=== PATIENT | female | born 1940 | race Caucasian/White ===

== ENCOUNTER 2016-10-26 08:07 | Day surgery (SDC) | payer MEDICARE, OTHER ==
[2016-10-26] MEDS: Polymyxin B/Trimethoprim 10 ML Bottle EYELF SCH ×4 (08:27→10:11)
[2016-10-26] MEDS: Brimonidine 0.2% Ophth Soln 5 ML Bottle EYELF SCH ×4 (08:32→10:11)
[2016-10-26] MEDS: Phenylephrine 2.5% Ophth Soln 2 ML Bot EYELF SCH ×6 (08:38→09:50)
--- NOTE | 2016-10-26 09:20 | PCM.PREANE ---
Preanesthetic Assessment - Anesthesia/Transfusion/Family Hx Anesthesia History: Prior Anesthesia Without Reaction Family History of Anesthesia Reaction: No Transfusion History: Prior Transfusion Without Reaction - Review of Systems General: No Symptoms Pulmonary: No Symptoms Cardiovascular: No Symptoms Gastrointestinal: No symptoms Neurological: No Symptoms Other: Reports: None - Physical Assessment NPO Status Date: 10/25/16 NPO Status Time: 20:00 Pulse: 55 O2 Sat by Pulse Oximetry: 99 Respiratory Rate: 16 Blood Pressure: 119/68 Temperature: 36.1 C Vital Signs: Last Vital Signs Temp 36.1 C 10/26/16 08:15 Pulse 55 L 10/26/16 08:15 Resp 16 10/26/16 08:15 BP 119/68 10/26/16 08:15 Pulse Ox 99 10/26/16 08:15 Height: 1.68 m Weight: 81.647 kg ASA Class: 2 Mental Status: Alert & Oriented x3 Airway Class: Mallampati = 1 Dentition: Reports: Normal Dentition Thyro-Mental Finger Breadths: 3 Mouth Opening Finger Breadths: 3 ROM/Head Extension: Full Lungs: Clear to auscultation, Normal respiratory effort Cardiovascular: Regular Rate, Regular Rhythm - Allergies Allergies/Adverse Reactions: Allergies Allergy/AdvReac Type Severity Reaction Status Date / Time Penicillins Allergy Cannot Verified 10/25/16 14:17 Remember - Blood Blood Available: No Product(s) Available: None - Anesthesia Plan Pre-Op Medication Ordered: Beta Elvia Beta Eliva: Atenolol Med Last Dose Date: 10/26/16 Med Last Dose Time: 07:00 - Acknowledgements Anesthesia Type Planned: MAC Pt an Appropriate Candidate for the Planned Anesthesia: Yes Alternatives and Risks of Anesthesia Discussed w Pt/Guardian: Yes Pt/Guardian Understands and Agrees with Anesthesia Plan: Yes PreAnesthesia Questionnaire - SUBSTANCE USE Smoking Status *Q: Never Smoker Tobacco Use Within Last Twelve Months: No Second Hand Smoke Exposure: No Days Per Week of Alcohol Use: 0 Number of Drinks Per Day: 1 Total Drinks Per Week: 0 Recreational Drug Use History: No - HOME MEDS Home Medications: Home Meds Escitalopram [Lexapro] 20 mg PO DAILY 10/25/16 [History] Hydrocodone/Acetaminophen [Hydrocodon-Acetaminophn 10-325] 1 tab PO Q6H PRN [History] Labetalol [Normodyne] 100 mg PO BID 10/25/16 [History] Latanoprost [Xalatan] 1 drop EYEBOTH BEDTIME 10/25/16 [History] Lisinopril 40 mg PO DAILY 10/25/16 [History] Meloxicam 15 mg PO DAILY 10/25/16 [History] Triamterene/Hydrochlorothiazid [Triamterene-HCTZ 75-50 MG] 1 tab PO DAILY [History] Zolpidem [Ambien] 10 mg PO BEDTIME 10/25/16 [History] amLODIPine [Norvasc] 10 mg PO DAILY 10/25/16 [History] - CURRENT (IN HOUSE) MEDS Current Meds: Current Medications Brimonidine Tartrate (Alphagan 0.2% Ophth Soln) 0 ml EYELF ASDIRECTED FELIPA Stop: 10/26/16 16:00 Last Admin: 10/26/16 08:32 Dose: 1 drop Cefuroxime Sodium (Zinacef) 0 mg EYELF ASDIRECTED FELIPA Stop: 10/26/16 18:00 Lidocaine HCl (Xylocaine-Mpf 1%) 10 ml INJECT ASDIRECTED FELIPA Stop: 10/26/16 18:00 Phenylephrine HCl (Catrachito-Synephrine 2.5% Ophth Soln) 0 ml EYELF ASDIRECTED FELIPA Stop: 10/26/16 16:00 Last Admin: 10/26/16 09:02 Dose: 1 drop Pilocarpine HCl (Pilocar 4% Ophth Soln) 0 ml EYELF ASDIRECTED FELIPA Stop: 10/26/16 16:00 Polymyxin/Trimethoprim Sulfate (Polytrim Ophth Soln) 0 ml EYELF ASDIRECTED FELIPA Stop: 10/26/16 16:00 Last Admin: 10/26/16 09:11 Dose: 1 drop Tetracaine HCl (Tetracaine 0.5% Steri-Unit Dominga) 0 ml EYELF ASDIRECTED FELIPA Stop: 10/26/16 16:00 Tropicamide (Mydriacyl 1% Ophth Soln) 0 ml EYELF ASDIRECTED FELIPA Stop: 10/26/16 16:00 Last Admin: 10/26/16 09:06 Dose: 1 drop
[2016-10-26] MEDS: Lidocaine 1% PF 2 ML SDV INJECT SCH ×2 (09:21→10:02)
[2016-10-26] MEDS: Cefuroxime 10 MG/ML SYRINGE EYELF SCH ×2 (09:22→10:10)
[2016-10-26] MEDS: Tetracaine HCl/PF 0.5% 4 ML Bottle EYELF SCH ×3 (09:22→10:03)
[2016-10-26] MEDS: Pilocarpine 4% Ophth Soln 15 ML Bot EYELF SCH ×2 (09:24→10:11)
--- NOTE | 2016-10-26 10:13 | PCM48HPAN ---
Post Anesthesia Note - EVALUATION WITHIN 48HRS OF ANESTHETIC Vital Signs in Normal Range: Yes Patient Participated in Evaluation: Yes Respiratory Function Stable: Yes Airway Patent: Yes Cardiovascular Function Stable: Yes Hydration Status Stable: Yes Pain Control Satisfactory: Yes Nausea and Vomiting Control Satisfactory: Yes Mental Status Recovered: Yes
[2016-10-26 10:28] VITALS: BP 126/59
== END 2016-10-26 10:25 | disposition home or self-care (01) ==
LOC: JD.SDS 08:07
PROVIDERS: ATTEND Ophthalmology
DX: H53.8 Other visual disturbances (principal); I10 Essential (primary) hypertension; Z88.0 Allergy status to penicillin; Z90.49 Acquired absence of other specified parts of digestive tract; Z90.710 Acquired absence of both cervix and uterus; Z98.890 Other specified postprocedural states; Z96.659 Presence of unspecified artificial knee joint
CPT/HCPCS: 66984; C1780; J0697; A9270-GY

== ENCOUNTER 2016-12-30 07:27 | Day surgery (SDC) | payer MEDICARE, OTHER ==
[~2016-12-30 07:27] MED LIST: Cefuroxime 10 MG/ML SYRINGE EYERT SCH; Lidocaine 1% PF 2 ML SDV INJECT SCH; Pilocarpine 4% Ophth Soln 15 ML Bot EYERT SCH
[2016-12-30] MEDS: Polymyxin B/Trimethoprim 10 ML Bottle EYERT SCH ×3 (07:35→09:24)
[2016-12-30] MEDS: Brimonidine 0.2% Ophth Soln 5 ML Bottle EYERT SCH ×3 (07:42→09:24)
[2016-12-30] MEDS: Phenylephrine 2.5% Ophth Soln 2 ML Bot EYERT SCH ×5 (07:48→09:08)
--- NOTE | 2016-12-30 08:30 | PCM.PREANE ---
Preanesthetic Assessment - Anesthesia/Transfusion/Family Hx Anesthesia History: Prior Anesthesia Without Reaction Family History of Anesthesia Reaction: No Transfusion History: Prior Transfusion Without Reaction - Review of Systems General: No Symptoms Pulmonary: No Symptoms Cardiovascular: No Symptoms Gastrointestinal: No Symptoms Neurological: No Symptoms Other: Reports: None - Physical Assessment NPO Status Date: 12/29/16 NPO Status Time: 21:00 Pulse: 60 O2 Sat by Pulse Oximetry: 97 Respiratory Rate: 16 Blood Pressure: 125/67 Temperature: 36.7 C Vital Signs: Last Vital Signs Temp 36.7 C 12/30/16 07:40 Pulse Resp 16 12/30/16 07:40 BP 125/67 12/30/16 07:40 Pulse Ox 97 12/30/16 07:40 Height: 1.65 m Weight: 72.575 kg ASA Class: 2 Mental Status: Alert & Oriented x3 Airway Class: Mallampati = 1 Dentition: Reports: Normal Dentition Thyro-Mental Finger Breadths: 3 Mouth Opening Finger Breadths: 3 ROM/Head Extension: Full Lungs: Clear to Auscultation, Normal Respiratory Effort Cardiovascular: Regular Rate, Regular Rhythm - Allergies Allergies/Adverse Reactions: Allergies Allergy/AdvReac Type Severity Reaction Status Date / Time Penicillins Allergy Cannot Verified 10/25/16 14:17 Remember - Blood Blood Available: No Product(s) Available: None - Anesthesia Plan Pre-Op Medication Ordered: None - Acknowledgements Anesthesia Type Planned: MAC Pt an Appropriate Candidate for the Planned Anesthesia: Yes Alternatives and Risks of Anesthesia Discussed w Pt/Guardian: Yes Pt/Guardian Understands and Agrees with Anesthesia Plan: Yes PreAnesthesia Questionnaire - SUBSTANCE USE Smoking Status *Q: Never Smoker Tobacco Use Within Last Twelve Months: No Second Hand Smoke Exposure: No Days Per Week of Alcohol Use: 0 Number of Drinks Per Day: 1 Total Drinks Per Week: 0 Recreational Drug Use History: No - HOME MEDS Home Medications: Home Meds Escitalopram [Lexapro] 20 mg PO DAILY 10/25/16 [History] Hydrocodone/Acetaminophen [Hydrocodon-Acetaminophn 10-325] 1 tab PO Q6H PRN [History] Labetalol [Normodyne] 100 mg PO BID 10/25/16 [History] Latanoprost [Xalatan] 1 drop EYEBOTH BEDTIME 10/25/16 [History] Lisinopril 40 mg PO DAILY 10/25/16 [History] Meloxicam 15 mg PO DAILY 10/25/16 [History] Triamterene/Hydrochlorothiazid [Triamterene-HCTZ 75-50 MG] 1 tab PO DAILY [History] Zolpidem [Ambien] 10 mg PO BEDTIME 10/25/16 [History] amLODIPine [Norvasc] 10 mg PO DAILY 10/25/16 [History] - CURRENT (IN HOUSE) MEDS Current Meds: Current Medications Brimonidine Tartrate (Alphagan 0.2% Ophth Soln) 0 ml EYERT ASDIRECTED FELIPA Stop: 12/30/16 18:00 Last Admin: 12/30/16 07:42 Dose: 1 drop Cefuroxime Sodium (Zinacef) 0 mg EYERT ASDIRECTED FELIPA Stop: 12/30/16 18:00 Lidocaine HCl (Xylocaine-Mpf 1%) 10 ml INJECT ASDIRECTED FELIPA Stop: 12/30/16 18:00 Phenylephrine HCl (Catrachito-Synephrine 2.5% Ophth Soln) 0 ml EYERT ASDIRECTED FELIPA Stop: 12/30/16 18:00 Last Admin: 12/30/16 08:06 Dose: 1 drop Pilocarpine HCl (Pilocar 4% Ophth Soln) 0 ml EYERT ASDIRECTED FELIPA Stop: 12/30/16 18:00 Polymyxin/Trimethoprim Sulfate (Polytrim Ophth Soln) 0 ml EYERT ASDIRECTED FELIPA Stop: 12/30/16 18:00 Last Admin: 12/30/16 08:17 Dose: 1 drop Tetracaine HCl (Tetracaine 0.5% Steri-Unit Dominga) 0 ml EYERT ASDIRECTED FELIPA Stop: 12/30/16 18:00 Tropicamide (Mydriacyl 1% Ophth Soln) 0 ml EYERT ASDIRECTED FELIPA Stop: 12/30/16 18:00 Last Admin: 12/30/16 08:12 Dose: 1 drop
[2016-12-30] MEDS: Tetracaine HCl/PF 0.5% 4 ML Bottle EYERT SCH ×2 (08:49→09:15)
[2016-12-30 09:38] VITALS: BP 114/66
== END 2016-12-30 09:36 | disposition home or self-care (01) ==
LOC: JD.SDS 07:27
PROVIDERS: ATTEND Ophthalmology
PROC: 08RJ3JZ Replacement of Right Lens with Synthetic Substitute, Percutaneous Approach (ICD-10-PCS; principal; 2016-12-30)
DX: H25.811 Combined forms of age-related cataract, right eye (principal); H02.834 Dermatochalasis of left upper eyelid; H02.831 Dermatochalasis of right upper eyelid; H40.1132 Primary open-angle glaucoma, bilateral, moderate stage; H35.3131 Nonexudative age-related macular degeneration, bilateral, early dry stage; Z96.1 Presence of intraocular lens; I10 Essential (primary) hypertension; M19.90 Unspecified osteoarthritis, unspecified site; Z90.49 Acquired absence of other specified parts of digestive tract; Z90.710 Acquired absence of both cervix and uterus; Z96.659 Presence of unspecified artificial knee joint; Z98.42 Cataract extraction status, left eye; Z98.890 Other specified postprocedural states; Z83.518 Family history of other specified eye disorder; Z83.3 Family history of diabetes mellitus; Z79.899 Other long term (current) drug therapy
CPT/HCPCS: 66984; A9270; C1780; J0697

== ENCOUNTER 2017-07-27 05:53 | Emergency (ER) | payer MEDICARE, OTHER ==
[2017-07-27 05:58] VITALS: BP 147/74
--- NOTE | 2017-07-27 06:15 | EDM.PDOC ---
ED HPI GENERAL MEDICAL PROBLEM - General Chief Complaint: Chest Pain Stated Complaint: chest pain Time Seen by Provider: 07/27/17 06:05 Source of Information: Reports: Patient History Limitations: Reports: No Limitations - History of Present Illness INITIAL COMMENTS - FREE TEXT/NARRATIVE: 76-year-old female presents to the ED with intermittent central chest discomfort which she has a hard time putting into words. She feels like an explosion is going to happen. She has deep insight into the feeling that it's underlying anxiety and stress causing her chest pains. She is having marked difficulty sleeping due to chronic low back pain with spinal stenosis radiating into both but talks and down her legs. Associated restless leg syndrome. She reports numerous family stressors that are not going well. She has no history of gastroesophageal reflux disease. She sometimes can get relief by taking Cleopatra- Allen as it makes her burp or belch. He doesn't have any trouble swallowing. She has no known heart disease. She is a never smoker. No recent history of being laid up although she reports she has not all that active because of her back pain. She had been receiving injections into the facet joints every 3 months and this seemed to help control her pain quite nicely but is no longer available to her. She denies any change in bowel or bladder function. Gallbladder is gone. He never radiates to her back neck or arms. She overall feels she needs different medication help control anxiety levels. At the time she seen in the ED she reports no chest pain. ECG done by triage nurse shows sinus rhythm at 70/m. There is a Q-wave in V1 and V2 compatible with an old anteroseptal myocardial infarction which the patient has no knowledge of. She does exhibit a left atrial hypertrophy pattern and as well as a left ventricular hypertrophy pattern. QT intervals mildly prolonged. No signs of ischemia are evident although the baseline does wander a fair amount. Onset: Gradual, Unknown/Unsure (Chest pains been coming and going for several days but perhaps a little worse or more intense or more frequent last 2 days.) Onset Date: 07/25/17 Duration: Day(s):, Getting Worse, Intermittent, Waxing/Waning Location: Reports: Chest (Mostly central retrosternal chest.) Quality: Reports: Ache, Pressure. Denies: Sharp, Stabbing Severity: Moderate Improves with: Reports: None Worsens with: Reports: None Context: Denies: Activity, Exercise, Lifting, Sick Contact, Trauma, Other Associated Symptoms: Reports: Chest Pain, Diaphoresis, Loss of Appetite, Malaise. 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: Other (see below) (None other than her prescribed medications.) Left Chest Pain Score (Numeric/FACES): 8 - Related Data Allergies Allergy/AdvReac Type Severity Reaction Status Date / Time Penicillins Allergy Cannot Verified 10/25/16 14:17 Remember [id number]-[id number] Reductase Allergy Cannot Verified 07/27/17 05:56 Inhibitor Remember Home Meds: Home Meds Escitalopram [Lexapro] 40 mg PO DAILY 10/25/16 [History] Hydrocodone/Acetaminophen [Hydrocodon-Acetaminophn 10-325] 1 tab PO Q6H PRN [History] Labetalol [Normodyne] 100 mg PO BID 10/25/16 [History] Latanoprost [Xalatan] 1 drop EYEBOTH BEDTIME 10/25/16 [History] Lisinopril 40 mg PO DAILY 10/25/16 [History] Meloxicam 15 mg PO DAILY 10/25/16 [History] Triamterene/Hydrochlorothiazid [Triamterene-HCTZ 75-50 MG] 1 tab PO DAILY [History] amLODIPine [Norvasc] 10 mg PO DAILY 10/25/16 [History] Bacitracin/Polymyxin B Sulfate [Polysporin Ointment] 15 gm TP DAILY #1 oint...g. 07/27/17 [Rx] ClonazePAM [KlonoPIN] 1 mg PO ASDIRECTED #60 tab 07/27/17 [Rx] Past Medical History HEENT History: Reports: Cataract, Impaired Vision Other HEENT History: Wears glasses Cardiovascular History: Reports: Hypertension Musculoskeletal History: Reports: Back Pain, Chronic Other Musculoskeletal History: Spinal stenosis, Restles leg syndrome Psychiatric History: Reports: Anxiety - Past Surgical History HEENT Surgical History: Reports: Cataract Surgery GI Surgical History: Reports: Appendectomy, Cholecystectomy Female Surgical History: Reports: Hysterectomy, Salpingo-Oophorectomy Musculoskeletal Surgical History: Reports: Knee Replacement Social & Family History - Tobacco Use Smoking Status *Q: Never Smoker Second Hand Smoke Exposure: No - Alcohol Use Days Per Week of Alcohol Use: 0 Number of Drinks Per Day: 1 Total Drinks Per Week: 0 - Recreational Drug Use Recreational Drug Use: No - Living Situation & Occupation Living situation: Reports: Occupation: Retired ED ROS GENERAL - Review of Systems Review Of Systems: See Below Constitutional: Reports: Fatigue, Decreased Appetite. Denies: Fever, Chills, Malaise, Weight Loss HEENT: Reports: Glasses, Nose Pain (Painful lesion left nosepainful lesion left inner naris for the last week no improvement on use of topical prescribed antibiotic which I suspect was likely Bactroban.). Denies: Hearing Loss, Vertigo Respiratory: Denies: Shortness of Breath, Wheezing, Pleuritic Chest Pain, Cough , Sputum, Hemoptysis Cardiovascular: Reports: Chest Pain, Blood Pressure Problem (Intermittent central chest pressure discomfort.). Denies: Claudication ( Chronic hypertension usually well controlled with medications), Dyspnea on Exertion, Edema, Lightheadedness, Orthopnea, Palpitations Endocrine: Reports: Fatigue GI/Abdominal: Denies: Abdominal Pain, Anorexia, Black Stool, Bloody Stool, Diarrhea, Decreased Appetite, Difficulty Swallowing, Distension, Flatus, Hematemesis, Hematochezia, Melena : Reports: Frequency Musculoskeletal: Reports: Back Pain (Chronic low back pain due to spinal stenosis with pain radiating down both legs. This is strongly disrupted her sleep patterns. She has associated restless leg syndrome which is getting worse as well.) Skin: Reports: No Symptoms Neurological: Reports: Difficulty Walking (Restless leg syndrome due to spinal stenosis.), Other Psychiatric: Reports: Anxiety Hematologic/Lymphatic: Reports: No Symptoms Immunologic: Reports: No Symptoms ED EXAM, GENERAL - Physical Exam Exam: See Below Exam Limited By: No Limitations General Appearance: Alert, WD/WN, Anxious (Mildly anxious.) Eye Exam: Bilateral Eye: Normal Inspection Throat/Mouth: Normal Inspection, Normal Lips, Normal Teeth, Normal Gums, Normal Oropharynx Head: Atraumatic, Normocephalic Neck: Normal Inspection, Supple, Non-Tender, Full Range of Motion. No: Carotid Bruit, Lymphadenopathy (L), Lymphadenopathy (R) Respiratory/Chest: No Respiratory Distress, Lungs Clear, Normal Breath Sounds, No Accessory Muscle Use, Chest Non-Tender Cardiovascular: Normal Peripheral Pulses, Regular Rate, Rhythm, No Edema, No Gallop, No Murmur, No Rub Peripheral Pulses: 2+: Posterior Tibial (L), Posterior Tibial (R), Dorsalis Pedis (L), Dorsalis Pedis (R) GI/Abdominal: Normal Bowel Sounds, Soft, Non-Tender, No Organomegaly, No Distention, No Abnormal Bruit, No Mass, Pelvis Stable Back Exam: Normal Inspection, Full Range of Motion. No: CVA Tenderness (L), CVA Tenderness (R) Extremities: Normal Inspection, Other (Has had bilateral total knee replacements left 10 years ago right 5 years ago. She still has marked increased warmth to palpation over the left knee. No edema in either lower extremity. Both calves were nontender and easily pliable.) Neurological: Alert, Oriented, CN II-XII Intact, Normal Cognition Psychiatric: Normal Affect, Anxious Skin Exam: Warm, Dry, Intact, Normal Color, No Rash EKG INTERPRETATION EKG Date: 07/27/17 Time: 06:00 Rhythm: NSR Rate (Beats/Min): 70 [place]: Normal P-Wave: Enlarged (Likely left atrial hypertrophy pattern.) QRS: Other (Left ventricular hypertrophy pattern Q waves V1 and V2 compatible with possible old anteroseptal myocardial infarction. She has no recollection of any heart attack.) ST-T: Normal QT: Prolonged (QT interval is mildly prolonged.) EKG Interpretation Comments: Abnormal ECG. No ischemia evident. Course - Vital Signs Last Recorded V/S: Last Vital Signs Temp 36.8 C 07/27/17 05:56 Pulse 72 07/27/17 05:56 Resp 16 07/27/17 05:56 BP 147/74 H 07/27/17 05:56 Pulse Ox 95 07/27/17 05:56 - Orders/Labs/Meds Orders: Active Orders 24 hr Category Date Time Status EKG Documentation Completion [RC] STAT Care 07/27/17 06:07 Active EKG Documentation Completion [RC] STAT Care 07/27/17 06:15 Active Peripheral IV Care [RC] . DIRECTED Care 07/27/17 06:16 Active Chest 1V Frontal [CR] Stat Exams 07/27/17 06:15 Taken PRO B-TYPE NATRIUR PEPT,BNPPRO [CHEM] Stat Lab 07/27/17 06:28 Received Sodium Chloride 0.9% [Saline Flush] Med 07/27/17 06:16 Active 10 ml FLUSH ASDIRECTED PRN Peripheral IV Insertion Adult [OM.PC] Stat Oth 07/27/17 06:16 Ordered Medication Orders Sodium Chloride (Saline Flush) 10 ml FLUSH ASDIRECTED PRN PRN Reason: Keep Vein Open Last Admin: 07/27/17 06:20 Dose: 10 ml Labs: Laboratory Tests 07/27/17 07/27/17 07/27/17 Range/Units 06:28 06:28 06:28 WBC 6.63 (3.98-10.04) K/mm3 RBC 4.06 (3.98-5.22) M/mm3 Hgb 11.7 (11.2-15.7) gm/L Hct 34.9 (34.1-44.9) % MCV 86.0 (79.4-94.8) fl MCH 28.8 (25.6-32.2) pg MCHC 33.5 (32.2-35.5) g/dl RDW Std Deviation 41.9 (36.4-46.3) fL Plt Count 282 (182-369) K/mm3 MPV 9.4 (9.4-12.3) fl Neutrophils % (Manual) 67 H (40-60) % Band Neutrophils % 0 (0-10) % Lymphocytes % (Manual) 24 (20-40) % Atypical Lymphs % 0 % Monocytes % (Manual) 5 (2-10) % Eosinophils % (Manual) 4 (0.7-5.8) % Basophils % (Manual) 0 L (0.1-1.2) Platelet Estimate Adequate RBC Morph Comment Normal D-Dimer, Quantitative 0.57 H (0.19-0.50) mg/L Sodium 135 L (136-145) mEq/L Potassium 3.7 (3.5-5.1) mEq/L Chloride 97 L (98-107) mEq/L Carbon Dioxide 29 (21-32) mEq/L Anion Gap 12.7 (5-15) BUN 12 (7-18) mg/dL Creatinine 1.0 (0.55-1.02) mg/dL Est Cr Clr Drug Dosing 43.74 mL/min Estimated GFR (MDRD) 54 (>60) mL/min BUN/Creatinine Ratio 12.0 L (14-18) Glucose 117 H (83-115) mg/dL Calcium 8.3 L (8.5-10.1) mg/dL Magnesium 1.4 L (1.8-2.4) mg/dl Total Bilirubin 0.4 (0.2-1.0) mg/dL AST 23 (15-37) U/L ALT 23 (14-59) U/L Alkaline Phosphatase 65 (46-116) U/L CK-MB (CK-2) 0.6 (0-3.6) ng/ml Troponin I < 0.017 (0.00-0.056) ng/mL C-Reactive Protein < 0.2 (<1.0) mg/dL Total Protein 6.3 L (6.4-8.2) g/dl Albumin 3.4 (3.4-5.0) g/dl Globulin 2.9 gm/dL Albumin/Globulin Ratio 1.2 (1-2) Meds: Medications Generic Name Dose Route Start Last Admin Trade Name Freq PRN Reason Stop Dose Admin Sodium Chloride 10 ml 07/27/17 06:16 07/27/17 06:20 Saline Flush FLUSH 10 ml ASDIRECTED PRN Administration Keep Vein Open - Radiology Interpretation Free Text/Narrative:: 76-year-old female presents to the ED with central chest discomfort that has been intermittent for the last several days but worse the last couple of days. More frequent and more intense. She feels at times as she's bursting from inside. She has strong insight into the fact that she is experiencing a good deal of anxiety. Her sleep pattern is extremely disrupted due to chronic low back pain from spinal stenosis and restless leg syndrome. She like if she gets 2 hours of sleep in a row most nights. She believes if her anxiety was under better control she would not be having the chest pain. Examination reveals lungs to be clear with sats of 100% on room air. ECG suggests possible Q waves in V1 and V2 suggesting an old anteroseptal myocardial infarction however the patient has no history of this. She is a never smoker. With the time my examination she had no chest pain and therefore was not prescribed any immediate medications. Labs will be done as well as a single chest x-ray. We will then reevaluate her medications. - Re-Assessments/Exams Free Text/Narrative Re-Assessment/Exam: 07/27/17 07:03 chest x-ray reveals mildly hyperinflated lung de la cruz bilaterally. Lung de la cruz are otherwise clear. Cardiac silhouette is within normal limits. Slight tortuosity of the thoracic your aorta is appreciated. 07/27/17 07:40 Labs are starting to come back. Total white count is 6.63 with 67 % neutrophils and no bands. Hemoglobin is 11.7 slightly low hematocrit is 34.9. MCV is normal at 86. Platelet count 282,000. D-dimer 0.57 upper limits of normal. Normal for her age. Chemistry is pending. Sodium is 135 with a potassium of 3.7. Chloride is 97 with a bicarbonate 29. Anion gap is 12.7 with a BUN of 12. Creatinine is normal at 1.0. Glucose is 117. Calcium 8.3. Magnesium slightly low at 1.4. Liver function is normal. Cardiac markers show a CK-MB fraction 0.6 with a troponin I of less than 0.017. C-reactive protein is less than 0.2. Therefore there is no supporting evidence of her chest pain cardiac related. She recognizes that it's mostly the stress in her life that is causing the problem with markedly disrupted sleep pattern. Her Ambien and is no longer very helpful as she seems to become very tolerant to it. Plan I'm going to place her on clonazepam-started with 1 mg at bedtime to aid sleep and 0.5 mg in the morning and if needed at 2 PM daily to control underlying anxiety. Advised follow-up with Amando Guillaume in one week's time. It also appears she could benefit from an increased dose and her Requip to 0.5 mg at bedtime which I will advise as well as her restless leg syndrome is much worse. It also has a mild sedative effect. Also recommend Polysporin ointment into her left nares with aid of a Q-tip every night at bedtime for the next week to heal up a superficial ulceration in her nose. Departure - Departure Time of Disposition: 07:49 Disposition: Home, Self-Care 01 Condition: Fair Clinical Impression: Non-cardiac chest pain, Generalized anxiety disorder, Chronic pain syndrome, Restless leg syndrome, Nasal mucositis (ulcerative) Prescriptions: Bacitracin/Polymyxin B Sulfate [Polysporin Ointment] 15 gm TP DAILY #1 oint...g. ClonazePAM [KlonoPIN] 1 mg PO ASDIRECTED #60 tab Referrals: Juliette Guillaume, [employer]INE OPERATOR [Primary Care Provider] - Forms: ED Department Discharge Additional Instructions: Evaluation the emergency room this morning in regards to intermittent central chest pains off and on for the last several days but much worse the last 2 days. She did shortness of breath. You have good insight into the chest pain being related to underlying stress and anxiety and severely disrupted sleep pattern due to chronic pain from lower back spinal stenosis. Associated restless leg syndrome. All the lab test ECG and chest x-ray returned within normal limits. There is no evidence that current chest pains or heart related. Also no blood clots were identified within the lungs. My suggestion is to discontinue Ambien for now which you've been utilizing to help sleep and it is no longer working well. Replace it with clonazepam 1 mg at bedtime. Use 0.5 mg or half a tablet in the morning and may repeat his second half tablet around 2 or 3:00 in the afternoon if you need to for anxiety relief. I would suggest increasing her Requip to 0.5 mg at bedtime to help with restless leg syndrome. The other medication is Polysporin ointment to be applied by Q-tip up into her left naris at bedtime for the next 7-10 days to heal superficial ulceration. Suggest follow-up with your personal care provider in 7 days time. - My Orders Last 24 Hours: My Active Orders 07/27/17 06:07 EKG Documentation Completion [RC] STAT 07/27/17 06:15 EKG Documentation Completion [RC] STAT Chest 1V Frontal [CR] Stat 07/27/17 06:16 Peripheral IV Care [RC] . DIRECTED Sodium Chloride 0.9% [Saline Flush] 10 ml FLUSH ASDIRECTED PRN Peripheral IV Insertion Adult [OM.PC] Stat 07/27/17 06:28 PRO B-TYPE NATRIUR PEPT,BNPPRO [CHEM] Stat - Assessment/Plan Last 24 Hours: My Active Orders 07/27/17 06:07 EKG Documentation Completion [RC] STAT 07/27/17 06:15 EKG Documentation Completion [RC] STAT Chest 1V Frontal [CR] Stat 07/27/17 06:16 Peripheral IV Care [RC] . DIRECTED Sodium Chloride 0.9% [Saline Flush] 10 ml FLUSH ASDIRECTED PRN Peripheral IV Insertion Adult [OM.PC] Stat 07/27/17 06:28 PRO B-TYPE NATRIUR PEPT,BNPPRO [CHEM] Stat
[2017-07-27] MEDS ORDERED: Sodium Chloride 0.9% 10 ML Syringe FLUSH PRN (06:16)
--- NOTE | 2017-07-27 08:43 | CR ---
Chest: Portable view of the chest was obtained. Comparison: Prior chest x-ray of 07/14/14. Heart size and mediastinum are within normal limits for portable technique. Lungs are clear. Bony structures are grossly intact. Impression: 1. Nothing acute is seen on portable chest x-ray. Diagnostic code #1
== END 2017-07-27 08:20 | disposition home or self-care (01) ==
LOC: JD.ED 05:53
DX: R07.89 Other chest pain (principal); F41.1 Generalized anxiety disorder; G89.29 Other chronic pain; G25.81 Restless legs syndrome; J34.81 Nasal mucositis (ulcerative); I10 Essential (primary) hypertension; Z88.0 Allergy status to penicillin; Z88.8 Allergy status to other drugs, medicaments and biological substances; Z79.899 Other long term (current) drug therapy
CPT/HCPCS: 36415; 71045; 80053; 82553; 83735; 83880; 84484; 85025; 85379; 86140; 93005; 99285; J7050; 99284

== ENCOUNTER 2018-04-22 13:06 | Emergency (ER) | payer MEDICARE, OTHER ==
[2018-04-22 13:15] VITALS: BP 134/100
[2018-04-22] MEDS ORDERED: Sodium Chloride 0.9% 10 ML Syringe FLUSH PRN (13:24)
[2018-04-22] MEDS ORDERED: Sodium Chloride 0.9% 1,000 ML IV ONE (13:26)
--- NOTE | 2018-04-22 13:57 | EDM.PDOC ---
ED HPI GENERAL MEDICAL PROBLEM - General Chief Complaint: General Stated Complaint: [facility] Time Seen by Provider: 04/22/18 13:10 Source of Information: Reports: Patient, Significant Other History Limitations: Reports: No Limitations - History of Present Illness INITIAL COMMENTS - FREE TEXT/NARRATIVE: 77-year-old female arrives via [facility]. Reportedly the patient was found on the floor in the bedroom. She denies any falls. Per EMS she was unsteady and had generalized weakness upon their arrival. The patient is denying any headaches, neck pain, syncope, chest pain, shortness of breath, abdominal pain, diarrhea, recent fevers or chills or cough symptoms. Patient's is present in the ER and states that she was in the bedroom. He did not hear her fall and found her on the floor. - Related Data Allergies Allergy/AdvReac Type Severity Reaction Status Date / Time Penicillins Allergy Cannot Verified 04/22/18 13:11 Remember Donkdrw-Znb-Cer Reductase Allergy Cannot Verified 04/22/18 13:11 Inhibitor Remember Home Meds: Home Meds Labetalol [Normodyne] 100 mg PO BID 10/25/16 [History] Latanoprost [Xalatan] 1 drop EYEBOTH BEDTIME 10/25/16 [History] Lisinopril 40 mg PO DAILY 10/25/16 [History] Triamterene/Hydrochlorothiazid [Triamterene-HCTZ 75-50 MG] 1 tab PO DAILY [History] amLODIPine [Norvasc] 10 mg PO DAILY 10/25/16 [History] buPROPion HCl [Wellbutrin Xl] 150 mg PO DAILY 01/21/18 [History] rOPINIRole HCl [Requip] 1 mg PO BEDTIME 01/21/18 [History] traZODone HCl [Trazodone HCl] 50 - 100 mg PO Q4HR PRN 01/21/18 [History] Escitalopram Oxalate [Lexapro] 20 mg PO DAILY 04/22/18 [History] Meloxicam [Mobic] 15 mg PO DAILY 04/22/18 [History] Nabumetone [Relafen] 750 mg PO BID 04/22/18 [History] Sertraline HCl 150 mg PO BEDTIME 04/22/18 [History] Zolpidem [Ambien] 10 mg PO BEDTIME 04/22/18 [History] Past Medical History HEENT History: Reports: Cataract, Impaired Vision Other HEENT History: Wears glasses Cardiovascular History: Reports: Hypertension Musculoskeletal History: Reports: Back Pain, Chronic Other Musculoskeletal History: Spinal stenosis, Restles leg syndrome Psychiatric History: Reports: Anxiety - Past Surgical History HEENT Surgical History: Reports: Cataract Surgery GI Surgical History: Reports: Appendectomy, Cholecystectomy Female Surgical History: Reports: Hysterectomy, Salpingo-Oophorectomy Musculoskeletal Surgical History: Reports: Knee Replacement Social & Family History - Tobacco Use Smoking Status *Q: Unknown Ever Smoked - Caffeine Use Caffeine Use: Reports: Coffee - Recreational Drug Use Recreational Drug Use: No - Living Situation & Occupation Living situation: Reports: Occupation: Retired ED ROS GENERAL - Review of Systems Review Of Systems: See Below Constitutional: Denies: Fever, Chills Respiratory: Denies: Shortness of Breath Cardiovascular: Denies: Chest Pain GI/Abdominal: Denies: Abdominal Pain, Diarrhea, Nausea, Vomiting Musculoskeletal: Denies: Neck Pain Neurological: Denies: Headache, Numbness, Syncope, Tingling ED EXAM, GENERAL - Physical Exam Exam: See Below Exam Limited By: No Limitations General Appearance: Alert, WD/WN, No Apparent Distress Eye Exam: Bilateral Eye: EOMI, Normal Inspection, PERRL Ears: Normal External Exam, Normal Canal, Hearing Grossly Normal, Normal TMs Nose: Normal Inspection Throat/Mouth: Normal Inspection, Normal Lips, Normal Voice, No Airway Compromise Head: Atraumatic, Normocephalic Neck: Normal Inspection, Supple, Non-Tender, Full Range of Motion. No: Carotid Bruit Respiratory/Chest: No Respiratory Distress, Lungs Clear, Normal Breath Sounds Cardiovascular: Normal Peripheral Pulses, Regular Rate, Rhythm, No Murmur Peripheral Pulses: 2+: Radial (L), Radial (R) GI/Abdominal: Normal Bowel Sounds, Soft, Non-Tender Extremities: Normal Inspection Neurological: Alert, Oriented, CN II-XII Intact, Normal Cognition, Normal Gait, Other (slab lifting supervisor strength, dorsiflexion and plantar flexion are 5/5 bilaterally; no pronator drift, normal finger to nose testing, normal heel to hin testing) Psychiatric: Normal Affect, Normal Mood Skin Exam: Warm, Dry, Normal Color EKG INTERPRETATION EKG Date: 04/22/18 Time: 13:53 Rhythm: NSR Rate (Beats/Min): 66 Wheelwright: Normal P-Wave: Present QRS: Normal ST-T: Normal QT: Normal EKG Interpretation Comments: NSR at 66 bpm. No acute changes. Reviewed by myself and Dr. card. Course - Vital Signs Last Recorded V/S: Last Vital Signs Temp 97.4 F 04/22/18 13:12 Pulse 71 04/22/18 13:12 Resp 13 04/22/18 13:12 BP 134/100 H 04/22/18 13:12 Pulse Ox 100 04/22/18 13:12 - Orders/Labs/Meds Labs: Laboratory Tests 04/22/18 04/22/18 04/22/18 Range/Units 13:42 13:42 15:20 WBC 6.96 (3.98-10.04) K/mm3 RBC 3.98 (3.98-5.22) M/mm3 Hgb 11.6 (11.2-15.7) gm/L Hct 35.3 (34.1-44.9) % MCV 88.7 (79.4-94.8) fl MCH 29.1 (25.6-32.2) pg MCHC 32.9 (32.2-35.5) g/dl RDW Std Deviation 41.9 (36.4-46.3) fL Plt Count 263 (182-369) K/mm3 MPV 10.0 (9.4-12.3) fl Neut % (Auto) 72.2 H (34.0-71.1) % Lymph % (Auto) 16.2 L (19.3-51.7) % [place] % (Auto) 6.0 (4.7-12.5) % Eos % (Auto) 4.6 (0.7-5.8) Baso % (Auto) 0.7 (0.1-1.2) % Neut # (Auto) 5.02 (1.56-6.13) K/mm3 Lymph # (Auto) 1.13 L (1.18-3.74) K/mm3 [place] # (Auto) 0.42 H (0.24-0.36) K/mm3 Eos # (Auto) 0.32 (0.04-0.36) K/mm3 Baso # (Auto) 0.05 (0.01-0.08) K/mm3 Sodium 137 (136-145) mEq/L Potassium 3.9 (3.5-5.1) mEq/L Chloride 101 (98-107) mEq/L Carbon Dioxide 30 (21-32) mEq/L Anion Gap 9.9 (5-15) BUN 18 (7-18) mg/dL Creatinine 0.9 (0.55-1.02) mg/dL Est Cr Clr Drug Dosing 49.78 mL/min Estimated GFR (MDRD) > 60 (>60) mL/min BUN/Creatinine Ratio 20.0 H (14-18) Glucose 98 (83-115) mg/dL Calcium 8.7 (8.5-10.1) mg/dL Magnesium 1.5 L (1.8-2.4) mg/dl Total Bilirubin 0.5 (0.2-1.0) mg/dL AST 16 (15-37) U/L ALT 21 (14-59) U/L Alkaline Phosphatase 77 (46-116) U/L Troponin I < 0.017 (0.00-0.056) ng/mL Total Protein 6.5 (6.4-8.2) g/dl Albumin 3.5 (3.4-5.0) g/dl Globulin 3.0 gm/dL Albumin/Globulin Ratio 1.2 (1-2) Urine Color Yellow (Yellow) Urine Appearance Clear (Clear) Urine pH 7.0 (5.0-8.0) Ur Specific Pearson 1.020 (1.005-1.030) Urine Protein Trace H (Negative) Urine Glucose (UA) Negative (Negative) Urine Ketones Negative (Negative) Urine Occult Blood Negative (Negative) Urine Nitrite Negative (Negative) Urine Bilirubin Negative (Negative) Urine Urobilinogen 0.2 (0.2-1.0) Ur Leukocyte Esterase Trace H (Negative) Urine RBC 0-5 (0-5) /hpf Urine WBC 0-5 (0-5) /hpf Ur Epithelial Cells 0-5 (0-5) /hpf Urine Bacteria Rare (FEW) /hpf Urine Mucus Not seen (FEW) /hpf Meds: Medications Discontinued Medications Generic Name Dose Route Start Last Admin Trade Name Freq PRN Reason Stop Dose Admin Sodium Chloride 1,000 mls @ 125 mls/hr 04/22/18 13:26 04/22/18 13:37 Normal Saline IV 04/22/18 21:25 125 mls/hr ONETIME ONE Administration Magnesium Oxide 400 mg 04/22/18 15:54 04/22/18 16:25 Magnesium Oxide PO 04/22/18 15:55 400 mg ONETIME ONE Administration Sodium Chloride 10 ml 04/22/18 13:24 04/22/18 13:38 Saline Flush FLUSH 10 ml ASDIRECTED PRN Administration Keep Vein Open - Radiology Interpretation Free Text/Narrative:: CT of the head without contrast impression per vrad: There is parenchymal volume loss. White matter changes are demonstrated in the subcortical, centrum semiovale and periventicular white matter consistent with small vessel white matter angiopathic gliosis. 1 view chest xray shows no acute intrathoracic process. Formal radiology read pending. - Re-Assessments/Exams Free Text/Narrative Re-Assessment/Exam: 04/22/18 16:30 I reviewed the labs, ekg and imaging with the patient She is very anxious to go at this point. She was able to stand and walk with assistance. Sounds as if the weakness is more of a chronic issue. Se [facility] but at this point her and her express no desire for this . Recommend close followup in the clinic with PCP. Discharge instructions as documented. Departure - Departure Time of Disposition: 16:34 Disposition: Home, Self-Care 01 Condition: Fair Clinical Impression: Weakness, Hypomagnesemia - Discharge Information *PRESCRIPTION DRUG MONITORING PROGRAM REVIEWED*: No *COPY OF PRESCRIPTION DRUG MONITORING REPORT IN PATIENT AHSAN: No Instructions: Hypomagnesemia, Weakness Referrals: Sherrill Montenegro NP [Primary Care Provider] - Forms: ED Department Discharge Additional Instructions: Recommend [id number] magnesium supplementation. Follow-up with your primary care provider for recheck of your symptoms this week. Make sure you are drinking plenty of fluids. Please return to ER if your symptoms change or worsen.
[2018-04-22] MEDS ORDERED: Magnesium Oxide 400 MG Tab PO ONE (15:54)
--- NOTE | 2018-04-23 17:00 | CR ---
Chest: Portable view of the chest was obtained. Comparison: Previous chest x-ray of 07/27/17. Heart size and mediastinum are normal. Lungs are clear. Evidence of old right distal clavicle resection. No acute bony abnormality is seen. Impression: 1. Nothing acute is seen on portable chest x-ray. Diagnostic code #2
--- NOTE | 2018-04-23 17:00 | CT ---
Head CT Technique: Multiple axial sections through the brain were obtained. Intravenous contrast was not utilized. Comparison: No prior head CT exam. Findings: Ventricles along with basal cisterns and sulci over the convexities are slightly prominent. Minimal areas diminished density are noted within the periventricular white matter compatible with slight small vessel ischemic demyelination change. No other abnormal parenchymal densities are seen. No evidence of intracranial hemorrhage. No midline shift or mass effect is seen. Bone window settings were reviewed which show no acute calvarial abnormality. Impression: 1. Mild senescent change. 2. Nothing acute is identified on noncontrast head CT study. Diagnostic code #2
== END 2018-04-22 16:40 | disposition home or self-care (01) ==
LOC: SUPCPDRO 13:06 → JD.ED 13:06
DX: E83.42 Hypomagnesemia (principal); R53.1 Weakness; I10 Essential (primary) hypertension; Z88.0 Allergy status to penicillin; Z79.899 Other long term (current) drug therapy; Z88.8 Allergy status to other drugs, medicaments and biological substances
CPT/HCPCS: 36415; 70450; 71045; 80053; 81001; 83735; 84484; 85025; 93005; 96360; 96361; 99285; A9270; J7040; 93010; 99283

== ENCOUNTER 2018-12-06 08:43 | Emergency (ER) | payer MEDICARE, OTHER ==
[2018-12-06 08:58] VITALS: BP 188/87
[2018-12-06] MEDS ORDERED: LORazepam 2 MG/ML SDV IVPUSH STA (09:05)
[2018-12-06] MEDS ORDERED: HYDROmorphone 1 MG/ML Syringe IVPUSH ONE ×2 (09:05→10:18)
--- NOTE | 2018-12-06 09:19 | EDM.PDOC ---
ED HPI GENERAL MEDICAL PROBLEM - General Chief Complaint: General Stated Complaint: [facility] Time Seen by Provider: 12/06/18 08:54 Source of Information: Reports: Patient History Limitations: Reports: Physical Impairment (The patient is angry and hostile, not wanting to answer any questions) - History of Present Illness INITIAL COMMENTS - FREE TEXT/NARRATIVE: The patient presents with neck pain and right upper extremity radicular symptoms , including tingling, numbness, and weakness. She states that she has had this neck pain and right upper extremity radiculopathy for 2 years, but that it has been getting worse over the past 3-4 months. She states that she has had x-rays and an MRI of her neck, although she does not know, specifically, what the pathology is. She states that she is due for neck surgery in [place] on 2018, and that she called her Neurosurgeon yesterday, but was told that they cannot move her surgery up. The patient denies having new symptoms, simply worsening of her chronic symptoms. No recent illness. The patient states that she takes Mobile on an as-needed basis, and she took one tablet this morning. The patient has had 2 lumbar laminectomies per her Neurosurgeon, however, no prior neck surgery. The patient's PCP is Sherrill Montenegro NP. Her Neurosurgeon is Dr. Jl Dunaway, in [place], [place]. Back Pain Score (Numeric/FACES): 10 - Related Data Allergies Allergy/AdvReac Type Severity Reaction Status Date / Time Penicillins Allergy Cannot Verified 12/06/18 08:58 Remember Jewfghh-Szh-Khj Reductase Allergy Cannot Verified 12/06/18 08:58 Inhibitor Remember Home Meds: Home Meds Labetalol [Normodyne] 100 mg PO BID 10/25/16 [History] Latanoprost [Xalatan] 1 drop EYEBOTH BEDTIME 10/25/16 [History] Lisinopril 40 mg PO DAILY 10/25/16 [History] Triamterene/Hydrochlorothiazid [Triamterene-HCTZ 75-50 MG] 1 tab PO DAILY [History] amLODIPine [Norvasc] 10 mg PO DAILY 10/25/16 [History] buPROPion HCl [Wellbutrin Xl] 150 mg PO DAILY 01/21/18 [History] rOPINIRole HCl [Requip] 1 mg PO BEDTIME 01/21/18 [History] traZODone HCl [Trazodone HCl] 50 - 100 mg PO Q4HR PRN 01/21/18 [History] Escitalopram Oxalate [Lexapro] 20 mg PO DAILY 04/22/18 [History] Meloxicam [Mobic] 15 mg PO DAILY 04/22/18 [History] Nabumetone [Relafen] 750 mg PO BID 04/22/18 [History] Sertraline HCl 150 mg PO BEDTIME 04/22/18 [History] Zolpidem [Ambien] 10 mg PO BEDTIME 04/22/18 [History] methylPREDNISolone [Medrol] 1 tab PO ASDIRECTED #1 dospk 12/06/18 [Rx] Past Medical History HEENT History: Reports: Impaired Vision Other HEENT History: Wears glasses Cardiovascular History: Reports: Hypertension Musculoskeletal History: Reports: Back Pain, Chronic (2 spinal stenosis), Neck Pain, Chronic Psychiatric History: Reports: Anxiety, Other (See Below) (Restless leg syndrome) - Past Surgical History HEENT Surgical History: Reports: Cataract Surgery (bilateral) GI Surgical History: Reports: Appendectomy, Cholecystectomy Female Surgical History: Reports: Hysterectomy (complete) Neurological Surgical History: Reports: Lumbar Spine (laminectomy x 2) Musculoskeletal Surgical History: Reports: Knee Replacement (bilateral), Shoulder Surgery (right, open) Social & Family History - Tobacco Use Smoking Status *Q: Never Smoker - Caffeine Use Caffeine Use: Reports: Coffee - Alcohol Use Alcohol Use History: Yes Alcohol Use Frequency: Socially - Recreational Drug Use Recreational Drug Use: No - Living Situation & Occupation Living situation: Reports: , with Spouse Occupation: Retired ED ROS GENERAL - Review of Systems Review Of Systems: ROS reveals no pertinent complaints other than HPI. ED EXAM, GENERAL - Physical Exam Exam: See Below Exam Limited By: No Limitations General Appearance: Alert, WD/WN, Mild Distress (appears uncomfortable) Eye Exam: Bilateral Eye: EOMI, Normal Inspection Ears: Normal External Exam, Hearing Grossly Normal Nose: Normal Inspection Throat/Mouth: Normal Inspection, Normal Lips, Normal Oropharynx, Normal Voice, No Airway Compromise Head: Atraumatic, Normocephalic Neck: Normal Inspection, Full Range of Motion Respiratory/Chest: No Respiratory Distress, Lungs Clear, Normal Breath Sounds, No Accessory Muscle Use Cardiovascular: Normal Peripheral Pulses, Regular Rate, Rhythm, No Gallop, No JVD, No Murmur, No Rub Peripheral Pulses: 4+: Radial (L), Radial (R) GI/Abdominal: Normal Bowel Sounds, Soft, Non-Tender, No Organomegaly, No Distention, No Abnormal Bruit, No Mass (Female) Exam: Deferred Rectal (Female) Exam: Deferred Back Exam: Normal Inspection, Full Range of Motion, NT Extremities: Normal Inspection, Normal Range of Motion, No Pedal Edema, Normal Capillary Refill Neurological: Alert, Oriented, Normal Cognition, Sensory/Motor Deficit (The patient reports is chronic/unchanged severe diminished sensation to her right upper extremity) Psychiatric: Other (Hostile/angry) Skin Exam: Warm, Dry, Intact, Normal Color, No Rash Course - Vital Signs Last Recorded V/S: Last Vital Signs Temp 36.3 C 12/06/18 08:49 Pulse 79 12/06/18 08:49 Resp 16 12/06/18 08:49 BP 188/87 H 12/06/18 08:49 Pulse Ox 98 12/06/18 08:49 - Orders/Labs/Meds Meds: Medications Discontinued Medications Generic Name Dose Route Start Last Admin Trade Name Cedrickq PRN Reason Stop Dose Admin Hydromorphone HCl 1 mg 12/06/18 09:05 12/06/18 09:16 Dilaudid IVPUSH 12/06/18 09:06 1 mg ONETIME ONE Administration Hydromorphone HCl 1 mg 12/06/18 10:18 12/06/18 10:23 Dilaudid IVPUSH 12/06/18 10:19 1 mg ONETIME ONE Administration Lorazepam 1 mg 12/06/18 09:05 12/06/18 09:14 Ativan IVPUSH 12/06/18 09:06 1 mg ONETIME STA Administration - Re-Assessments/Exams Free Text/Narrative Re-Assessment/Exam: 12/06/18 09:18 As per the HPI, the patient's neck pain and right upper extremity symptoms are chronic, progressively worsening over the past 3-4 months. The patient has been given 1 mg of Dilaudid and 1 mg of Ativan, but I don't see that there is much that we can do about her chronic situation at this facility. I am endeavoring to contact her Neurosurgeon, Dr. Mukul Dunaway, to see what he recommends. 12/06/18 09:21 Notified by the apartment community manager Sheridan that Dr. Dunaway is currently in surgery. A message was left for him to call us when available. 12/06/18 11:09 Case discussed with Bernie, one of Dr. Dunaway's PA's. She stated that Dr. Dunaway is still in surgery. She stated that the patient has C3-C7 stenosis due to arthritis, not due to cervical disc disease, and that it has progressively been getting worse. She is scheduled for a C3-C7 posterior laminectomy. She stated that Dr. Dunaway has surgical time available prior to January 17, however, when surgeries are planned that far out, it is usually because of the need for surgical clearance. She stated that she will contact the surgical supervisor to find out, then call the patient at home, but in the meantime suggested that we treat the patient with a Medrol Dosepak. 12/06/18 11:18 My discussion with Bernie and the above proposed plan was discussed with the patient and her , who are agreeable. I will discharge her home. Departure - Departure Time of Disposition: 11:19 Disposition: Home, Self-Care 01 Condition: Good Clinical Impression: Cervical stenosis of spinal canal, Right cervical radiculopathy - Discharge Information *PRESCRIPTION DRUG MONITORING PROGRAM REVIEWED*: Not Applicable *COPY OF PRESCRIPTION DRUG MONITORING REPORT IN PATIENT AHSAN: Not Applicable Referrals: Sherrill Montenegro NP [Primary Care Provider] - Mukul Dunaway MD [Ordering Only Provider] - Forms: ED Department Discharge Additional Instructions: You were seen in the emergency room for continued neck pain with numbness, tingling, and weakness to your right arm. Your pain improved after you were given pain medicine and antianxiety medicine. Your case was discussed with Bernie, one of Dr. Dunaway's PA's. She recommended that we prescribe you a Medrol Dosepak, and in the meantime, she will contact the surgical supervisor, to see if they can move up your surgery. She will call you at home after she has spoken to the surgical supervisor. A prescription for Medrol Dosepak has been sent to the [facility]. Take as directed. Follow-up with your PCP, Sherrill Montenegro NP, as scheduled for your preoperative clearance. If any other problems, please do not hesitate to return to the ER.
== END 2018-12-06 11:51 | disposition home or self-care (01) ==
LOC: JD.ED 08:43
DX: M48.02 Spinal stenosis, cervical region (principal); M54.12 Radiculopathy, cervical region; I10 Essential (primary) hypertension; F41.9 Anxiety disorder, unspecified; Z79.899 Other long term (current) drug therapy; Z88.0 Allergy status to penicillin; Z88.8 Allergy status to other drugs, medicaments and biological substances
CPT/HCPCS: 96374; 96375; 96376; 99283; J1170; J2060

== ENCOUNTER 2020-01-27 14:20 | Emergency (ER) | payer MEDICARE, OTHER ==
[2020-01-27] MEDS ORDERED: FLU Vacc QV2020-21(65YR UP)/PF 240 MCG/0.7 ML Syringe IM ONE (14:45)
--- NOTE | 2020-01-27 15:00 | EDM.PDOC ---
ED HPI GENERAL MEDICAL PROBLEM - General Chief Complaint: General Stated Complaint: [facility] Time Seen by Provider: 01/27/20 14:59 - History of Present Illness INITIAL COMMENTS - FREE TEXT/NARRATIVE: 79-year-old female brought into the emergency room by EMS after falling out of bed. Patient fell out of bed and had difficulty moving. Usually the patient ambulates with the assistance of a walker or a cane. She could not get herself up. Her was doing something out the garage and could not be of assistance. She slid across the floor across the house to get to the phone to call for help. She is not sure exactly how long she was down on the floor it was somewhere between 2 and 4 hours. She denies any significant pain at this time. The patient denies hitting her head and had no loss of consciousness. She does complain of her depression not being adequately controlled however is not suicidal and has no wishes of harming herself. 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: Other (see below) Other Treatments GLASS ARTIST: drssing to the left ebow tear - Related Data Allergies Allergy/AdvReac Type Severity Reaction Status Date / Time Penicillins Allergy Severe Cannot Verified 01/27/20 14:34 Remember Ndaacmb-Snx-Sgm Reductase Allergy Severe Cannot Verified 01/27/20 14:34 Inhibitor Remember Home Meds: Home Meds Labetalol [Normodyne] 100 mg PO BID 10/25/16 [History] Lisinopril 40 mg PO DAILY 10/25/16 [History] Triamterene/Hydrochlorothiazid [Triamterene-HCTZ 75-50 MG] 1 tab PO DAILY 10/25/16 [History] buPROPion HCL [Wellbutrin Xl] 150 mg PO DAILY 01/21/18 [History] rOPINIRole HCl [Requip] 2 mg PO BEDTIME 01/21/18 [History] traZODone HCl [Trazodone HCl] 50 - 100 mg PO Q4HR PRN 01/21/18 [History] Escitalopram Oxalate [Lexapro] 20 mg PO DAILY 04/22/18 [History] Nabumetone [Relafen] 750 mg PO BID 04/22/18 [History] Zolpidem [Ambien] 10 mg PO BEDTIME 04/22/18 [History] Ketorolac [Acular 0.5% Ophth Soln] 1 drop TOP QID 01/27/20 [History] Triamterene/Hydrochlorothiazid [Maxzide 75 mg-50 mg Tablet] 1 tab PO DAILY 01/27/20 [History] oxyCODONE HCl/Acetaminophen [Percocet 10-325 mg Tablet] 1 tab PO QID 01/27/20 [History] Past Medical History HEENT History: Reports: Impaired Vision Other HEENT History: Wears glasses Cardiovascular History: Reports: Hypertension Musculoskeletal History: Reports: Back Pain, Chronic, Neck Pain, Chronic Other Musculoskeletal History: Spinal stenosis, Restles leg syndrome Psychiatric History: Reports: Anxiety, Other (See Below) - Past Surgical History HEENT Surgical History: Reports: Cataract Surgery GI Surgical History: Reports: Appendectomy, Cholecystectomy Female Surgical History: Reports: Hysterectomy Neurological Surgical History: Reports: Lumbar Spine Musculoskeletal Surgical History: Reports: Knee Replacement, Shoulder Surgery Social & Family History - Tobacco Use Tobacco Use Status *Q: Never Tobacco User - Caffeine Use Caffeine Use: Reports: Coffee, Tea - Recreational Drug Use Recreational Drug Use: No - Living Situation & Occupation Living situation: Reports: , with Spouse Occupation: Retired ED ROS GENERAL - Review of Systems Review Of Systems: See Below Constitutional: Reports: No Symptoms HEENT: Reports: No Symptoms Respiratory: Reports: No Symptoms Cardiovascular: Reports: No Symptoms Endocrine: Reports: No Symptoms GI/Abdominal: Reports: No Symptoms : Reports: No Symptoms Musculoskeletal: Reports: Other (She has some vague mild pain in her extremities on the left side mostly around her elbow) Skin: Reports: Other (Bruising and skin tears associated with the fall) Neurological: Reports: No Symptoms Psychiatric: Reports: Depression. Denies: Agitation, Anxiety, Confusion, Homicidal Ideation, Mood Lability, Suicidal Ideation Hematologic/Lymphatic: Reports: No Symptoms Immunologic: Reports: No Symptoms ED EXAM, GENERAL - Physical Exam Exam: See Below Exam Limited By: No Limitations General Appearance: Alert, No Apparent Distress Eye Exam: Bilateral Eye: Normal Inspection Ears: Normal External Exam, Normal Canal, Hearing Grossly Normal, Normal TMs Nose: Normal Inspection, Normal Mucosa, No Blood Throat/Mouth: Normal Inspection, Normal Lips, Normal Teeth, Normal Gums, Normal Oropharynx, Normal Voice, No Airway Compromise Head: Atraumatic, Normocephalic Neck: Normal Inspection, Supple, Non-Tender. No: Lymphadenopathy (L), Lymphadenopathy (R), Tender Lateral, Tender Midline Respiratory/Chest: No Respiratory Distress, Lungs Clear, Normal Breath Sounds, Chest Non-Tender, Other (Ribs are carefully palpated and no areas of tenderness identified) Cardiovascular: Regular Rate, Rhythm, No Edema, No Murmur GI/Abdominal: Normal Bowel Sounds, Soft, Non-Tender Back Exam: Normal Inspection, Full Range of Motion. No: CVA Tenderness (L), CVA Tenderness (R), Vertebral Tenderness Extremities: Other (Right-sided extremities are normal left-sided extremities especially her left arm around her elbow down to her hand have significant abrasions and ecchymosis she is got a small abrasion over her left knee as well the patient has no palpable discomfort around the knee she cannot fully extend her elbow but has intact supination and pronation. No significant discomfort with palpation.) Course - Vital Signs Last Recorded V/S: Last Vital Signs Temp 36.3 C 01/27/20 17:21 Pulse 88 01/27/20 17:21 Resp 16 01/27/20 17:21 BP 168/81 H 01/27/20 17:21 Pulse Ox 98 01/27/20 17:21 - Orders/Labs/Meds Orders: Active Orders 24 hr Category Date Time Status Influenza Vaccine Charge [RC] .DISCHARGE Care 01/27/20 14:39 Active Elbow Min 3V Lt [CR] Stat Exams 01/27/20 15:13 Taken MYOGLOBIN, URINE Stat Lab 01/27/20 15:17 Ordered Lactated Ringers [Ringers, Lactated] 1,000 ml Med 01/27/20 15:30 Active IV ASDIRECTED Potassium Chloride [Klor-Con M20] Med 01/27/20 18:41 Once 40 meq PO ONETIME ONE Medication Orders Lactated Ringer's (Ringers, Lactated) 1,000 mls @ 125 mls/hr IV ASDIRECTED FELIPA Labs: Laboratory Tests 01/27/20 01/27/20 01/27/20 Range/Units 16:10 16:28 16:28 WBC 14.78 H (3.98-10.04) K/mm3 RBC 4.30 (3.98-5.22) M/mm3 Hgb 12.7 (11.2-15.7) gm/dl Hct 37.7 (34.1-44.9) % MCV 87.7 (79.4-94.8) fl MCH 29.5 (25.6-32.2) pg MCHC 33.7 (32.2-35.5) g/dl RDW Std Deviation 40.2 (36.4-46.3) fL Plt Count 342 D (182-369) K/mm3 MPV 9.8 (9.4-12.3) fl Neut % (Auto) 85.9 H (34.0-71.1) % Lymph % (Auto) 8.1 L (19.3-51.7) % Saline % (Auto) 5.4 (4.7-12.5) % Eos % (Auto) 0.1 L (0.7-5.8) Baso % (Auto) 0.3 (0.1-1.2) % Neut # (Auto) 12.70 H (1.56-6.13) K/mm3 Lymph # (Auto) 1.20 (1.18-3.74) K/mm3 Saline # (Auto) 0.80 H (0.24-0.36) K/mm3 Eos # (Auto) 0.01 L (0.04-0.36) K/mm3 Baso # (Auto) 0.04 (0.01-0.08) K/mm3 Manual Slide Review Abnormal smear Sodium 132 L (136-145) mEq/L Potassium 3.0 L (3.5-5.1) mEq/L Chloride 97 L (98-107) mEq/L Carbon Dioxide 23 (21-32) mEq/L Anion Gap 15.0 (5-15) BUN 11 (7-18) mg/dL Creatinine 0.8 (0.55-1.02) mg/dL Est Cr Clr Drug Dosing 56.36 mL/min Estimated GFR (MDRD) > 60 (>60) mL/min BUN/Creatinine Ratio 13.8 L (14-18) Glucose 104 (83-115) mg/dL Calcium 8.9 (8.5-10.1) mg/dL Total Bilirubin 0.6 (0.2-1.0) mg/dL AST 23 (15-37) U/L ALT 30 (14-59) U/L Alkaline Phosphatase 62 (46-116) U/L Creatine Kinase 213 H (26-192) U/L Total Protein 6.2 L (6.4-8.2) g/dl Albumin 3.4 (3.4-5.0) g/dl Globulin 2.8 gm/dL Albumin/Globulin Ratio 1.2 (1-2) Urine Color Yellow (Yellow) Urine Appearance Clear (Clear) Urine pH 7.0 (5.0-8.0) Ur Specific [place] 1.025 (1.005-1.030) Urine Protein Trace H (Negative) Urine Glucose (UA) Negative (Negative) Urine Ketones 2+ H (Negative) Urine Occult Blood Trace-lysed H (Negative) Urine Nitrite Negative (Negative) Urine Bilirubin Negative (Negative) Urine Urobilinogen 0.2 (0.2-1.0) Ur Leukocyte Esterase Negative (Negative) Urine RBC 0-5 (0-5) /hpf Urine WBC 0-5 (0-5) /hpf Ur Squamous Epith Cells 0-5 (0-5) /hpf Urine Bacteria Few (FEW) /hpf Urine Mucus Few (FEW) /hpf Meds: Medications Generic Name Dose Route Start Last Admin Trade Name Freq PRN Reason Stop Dose Admin Lactated Ringer's 1,000 mls @ 125 mls/hr 01/27/20 15:30 Ringers, Lactated IV ASDIRECTED FELIPA Discontinued Medications Generic Name Dose Route Start Last Admin Trade Name Freq PRN Reason Stop Dose Admin Lactated Ringer's 500 mls @ 999 mls/hr 01/27/20 15:19 01/27/20 15:49 Ringers, Lactated IV 01/27/20 15:49 999 mls/hr .BOLUS ONE Administration Influenza Virus Vaccine 1 each 01/27/20 14:39 Pharmacy To Dose - Influenza Vaccine IM 01/27/20 14:40 ONETIME ONE Influenza Virus Vaccine 240 mcg 01/27/20 14:45 01/27/20 15:49 Fluzone High-Dose Quad 2020-21 IM 01/27/20 14:46 240 mcg .ONCE ONE Administration - Re-Assessments/Exams Free Text/Narrative Re-Assessment/Exam: 01/27/20 15:26 We will check some lab work start IV fluids and x-ray her left elbow 01/27/20 18:52 That patient is doing well lab work shows hypokalemia. Urine shows microscopic hematuria but no evidence of infection. This most likely related to the fall. The patient is due for her pain medication she takes oxycodone 10/325 4 times a day we will give her 2 5/325's now. Low x-ray is negative for acute fracture dislocation. In tears of all been addressed by nursing Steri-Strips applied were necessary. It is received some IV fluids she is absolutely insistent on going home right now we will discharge her Departure - Departure Time of Disposition: 19:01 Disposition: Home, Self-Care Clinical Impression: Skin tear of elbow without complication, Skin tear, Multiple contusions - Discharge Information Referrals: Sherrill Montenegro, [facility]ER [Primary Care Provider] - Forms: ED Department Discharge Additional Instructions: Return to the emergency room with any questions problems or worsening symptoms. Follow-up in the clinic on Tuesday for recheck make sure your potassium is okay as it was decreased here today and have them assess your kidney function as your BUN and creatinine were slightly elevated here today you did receive some fluid therapy here in the emergency room which should help with that. Also a urine myoglobin was sent out today and this will need to be followed up. The results of this will hopefully be back tomorrow afternoon. Sepsis Event Note (ED) - Evaluation Sepsis Screening Result: No Definite Risk - Focused Exam Vital Signs: Vital Signs Temp Pulse Resp BP Pulse Ox 01/27/20 17:21 36.3 C 88 16 168/81 H 98 01/27/20 14:42 36.2 C 77 20 178/78 H 96 - My Orders Last 24 Hours: My Active Orders 01/27/20 14:39 Influenza Vaccine Charge [RC] .DISCHARGE 01/27/20 15:13 Elbow Min 3V Lt [CR] Stat 01/27/20 15:17 MYOGLOBIN, URINE Stat 01/27/20 15:30 Lactated Ringers [Ringers, Lactated] 1,000 ml IV ASDIRECTED 01/27/20 18:41 Potassium Chloride [Klor-Con M20] 40 meq PO ONETIME ONE - Assessment/Plan Last 24 Hours: My Active Orders 01/27/20 14:39 Influenza Vaccine Charge [RC] .DISCHARGE 01/27/20 15:13 Elbow Min 3V Lt [CR] Stat 01/27/20 15:17 MYOGLOBIN, URINE Stat 01/27/20 15:30 Lactated Ringers [Ringers, Lactated] 1,000 ml IV ASDIRECTED 01/27/20 18:41 Potassium Chloride [Klor-Con M20] 40 meq PO ONETIME ONE
[2020-01-27] MEDS ORDERED: Lactated Ringers 500 ML IV ONE (15:19)
[2020-01-27] MEDS ORDERED: Lactated Ringers 1,000 ML IV SCH (15:30)
[2020-01-27 17:22] VITALS: BP 168/81; PULSE 88
[2020-01-27] MEDS ORDERED: Potassium Chloride 20 MEQ Tab.ER PO ONE (18:41)
[2020-01-27] MEDS ORDERED: Acetaminophen/oxyCODONE 325-5 MG Tab PO ONE ×2 (18:47→18:50)
== END 2020-01-27 19:25 | disposition home or self-care (01) ==
LOC: SUPCPDRO 14:20 → JD.ED 14:20
DX: S51.012A Laceration without foreign body of left elbow, initial encounter (principal); S80.212A Abrasion, left knee, initial encounter; F41.9 Anxiety disorder, unspecified; G25.81 Restless legs syndrome; Z23 Encounter for immunization; Z88.0 Allergy status to penicillin; Z88.8 Allergy status to other drugs, medicaments and biological substances; Z79.899 Other long term (current) drug therapy; W06.XXXA Fall from bed, initial encounter
CPT/HCPCS: 73080; 80053; 81001; 82550; 83874; 85025; 90662; 99284; A9270; G0008; J7120; 99283